=== PATIENT | female | born 1930 | race Caucasian/White ===

== ENCOUNTER 2017-01-08 22:37 | Inpatient (IN) | payer OTHER, BC ==
[~2017-01-08] VITALS: Ht 162.6 cm; Wt 56.0 kg
--- NOTE | 2017-01-08 23:03 | NUR ---
RECIEVED A 86 YEAR OLD FEMALE IN ROOM 1T C/O SHORTNESS OF BREATH FROM [place]. PT HAS HX OF DEMENTIA, ASTHMA AND COPD. PT AAOX4, REPSPIRATORY MILDLY LABORIOUS, WHEEZING NOTED ON AUSCULATION. 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 CALL LIGHT WITHIN REACH AND WILL CONTINUE TO MONITOR.
[2017-01-08 23:37] LABS: BASOPHIL % 0.5 % (0-2); PLATELET COUNT 190 x10^3mcL (130-400); RED CELL DISTRIBUTION WIDTH 13.5 % (11.5-14.5)
[2017-01-08 23:47] LABS: CALCIUM 9.1 mg/dL (8.5-10.1); CARBON DIOXIDE 31.4 mmol/L (21-32); CHLORIDE SERUM 103 mmol/L (98-107); CREATININE SERUM 1.4 mg/dL (0.6-1.0); GLUCOSE SERUM 116 mg/dL (74-106); POTASSIUM SERUM 3.6 mmol/L (3.5-5.1); SODIUM SERUM 145 mmol/L (136-145)
[2017-01-08 23:58] LABS: ALBUMIN 3.6 g/dL (3.4-5.0); ALKALINE PHOSPHATASE 58 U/L (46-116); ALT/SGPT 21 U/L (14-59); AST/SGOT 21 U/L (15-37); BILIRUBIN TOTAL 0.5 mg/dL (0.20-1.00); C REACTIVE PROTEIN 6.6 mg/dL (<=0.9); TOTAL PROTEIN, SERUM 7.2 g/dL (6.4-8.2)
--- NOTE | 2017-01-09 00:27 | NUR ---
PT STATUS DISCUSSED WITH DR ZARATE. AT TIME OF TRIAGE, PT MET SIRS CRITERIA. PT ALSO HAD ELEVATED LACTATE AT 2.5. PER DR ZARATE THERE IS NO SOURCE OF INFECTION. PT CONTINUES TO MEET SIRS CRITERIA BUT DOES NOT MEET SEPSIS CRITERIA AT THIS TIME. PURPLE SCREENING SHEET COMPLETED TO REFLECT THIS.
[2017-01-09 00:39] LABS: FREE T4 1.46 ng/dL (0.76-1.46)
[2017-01-09 00:40] LABS: T3 TOTAL 0.84 ng/mL
[2017-01-09] MEDS ORDERED: ARICEPT10 MG PO (00:53)
[2017-01-09] MEDS ORDERED: PREDNISONE5 MG PO (00:54)
[2017-01-09] MEDS ORDERED: AZOPT10 ML OS ×2 (01:00→12:12)
[2017-01-09] MEDS ORDERED: LUMIGAN2.5 M1 OU ×2 (01:00→12:12)
[2017-01-09] MEDS ORDERED: DUONEB 0.5-2.5MG/3ML NEB (01:04)
--- NOTE | 2017-01-09 01:09 | NUR ---
REPORT GIVEN TO MARQUISE BECKFORD.
[2017-01-09 01:16] LABS: UA SPECIFIC GRAVITY >=1.030 (1.005-1.035); microscopic required? YES; urine erythrocyte 3+ (NEGATIVE)
--- NOTE | 2017-01-09 01:23 | NUR ---
PT TRANSPORTED TO [facility] VIA [facility] ON BY MINNIE RN AND [facility]NIE EMT. PT IN NAD
[2017-01-09 01:42] LABS: ERYTHROCYTE SED RATE 32 mm/hr (0-30)
[2017-01-09 01:50] LABS: CHOLESTEROL/HDL RATIO 3.8; MAGNESIUM 2.1 mg/dL (1.8-2.4); PHOSPHOROUS 4.8 mg/dL (2.5-4.9)
[2017-01-09 01:53] VITALS: BP 108/69
--- NOTE | 2017-01-09 02:50 | NUR ---
RECEIVED FROM ER WITH ADMITTING DX OF COPD EXACERBATION, FACILITATED TO ASSIGNED BED AND ADMISSION CARE PROT RENDERED, PT ON SEPSIS PROT FOR ELEVATED LACTIC ACID 2.5, RECEIVED PT WITH ONGOING BOLUS IVF NS 1ST BAG HANGED AND RUNNING, IV ACCESS @ RAC PATENT NON INFIL, PT AAO VERBAL WITH MARKED WEAKNESS AAO X4 VERBAL DENIES PAIN, NO DISTRESS WITH COARSE CRACKLES BILAT LUNGS, ON AND OFF MOIST COUGHING PRODUCTIVE WITH CLEAR PHLEGM, 02 @ 2L/MIN NC, SATURATING 95% RT PROT FOR TX, HOOKED TO TELE #35 SR IN THE MONITOR, NO CP OR PRESSURE, SCD'S APPLIED FOR DVT PROPHYLAXIS, MD ADMISSION ORDERS NOTED AND CARRIED OUT, ADMISSION ASSESSMENT COMPLETED, CONT TO MONITOR AND PROCEED TO CURRENT PLAN OF CARE.
--- NOTE | 2017-01-09 04:45 | NUR ---
PT ASLEEP NO S/SX OF PAIN NOR DISCOMFORTS NO DISTRESS, CLEOCIN AND LEVAQUIN IV ADMINISTERED, BOLUS NS STILL RUNNING 2ND BAG, PT AWAKE COHERENT FOLLOWS COMMAND DENIES PAIN, V/S STABLE NO DISTRESS, CHECKED VISUALLY AT INTERVALS ATTENDED NEEDS.
[2017-01-09 05:00] VITALS: BP 121/63
--- NOTE | 2017-01-09 05:00 | NUR ---
COMPLETED BOLUS NS, BP 121/63, RR 22, HR 78, TEMP 99, SATURATING 94% WITH 2L 02/NC, CONT TO MONITOR.
--- NOTE | 2017-01-09 06:31 | NUR ---
CALLED DR MACIAS FOR RT TX ORDER, WITH AUDIBLE COARSE CRACKLES, MOIST COUGHING PT DESATURATE TO 79% DURING PHYSICAL EXERTION WHEN TRYING TO AMBULATE TO THE BATHROOM PUT BACK TO BED, 02 @ 3L/MIN GIVEN SATURATING WENT UP TO 94%, LIDAR SCIENTIST CALLED FOR TX.
--- NOTE | 2017-01-09 09:37 | NUR ---
PT ON BED, AWAKE, ALERT, AND ORIENTED. HAS NO COMPLAINT OF PAIN, SOB, OR DIZZINESS. RESPONDS WELL TO QUESTION AND ANSWER. RHONCHI NOTED ON THE BAM LUNG FIELD. SYMMETRICAL CHEST EXPANSION AND UNLABORED. PT ON 3LNC. ACTIVE BOWEL SOUNDS NOTED. SIDE RAILS UP, CALL LIGHT WITHIN REACH, WILL CONTINUE TO MONITOR
[2017-01-09 11:55] VITALS: BP 131/68
--- NOTE | 2017-01-09 12:00 | NUR ---
PT AT BEDSIDE. EATING LUNCH. WILL CONTINUE TO MONITOR
[2017-01-09 15:35] VITALS: BP 123/71
--- NOTE | 2017-01-09 15:48 | NUR ---
PT ON BED, AWAKE, ALERT, AND ORIENTED. HAS NO COMPLAINT OF PAIN, SOB, OR DIZZINESS. RESPONDS WELL TO QUESTION AND ANSWER.
--- NOTE | 2017-01-09 17:33 | NUR ---
PT ON BED, AWAKE, ALERT, AND ORIENTED. HAS NO COMPLAINT OF PAIN, SOB, OR DIZZINESS. RESPONDS WELL TO QUESTION AND ANSWER. SIDE RAILS UP, CALL LIGHT WITHIN REACH, WILL CONTINUE TO MONITOR
[2017-01-09 17:35] VITALS: BP 103/76
--- NOTE | 2017-01-09 19:36 | NUR ---
PT IS A/O X3, VERBAL RESPONSIVE, ABLE TO TELL WHAT SHE NEEDS, LUNG SOUND WHEEZING BILATERAL, NO COUGH, DENY ANY SOB, PT IS ON 2L/MIN O2 VIA NC, PO2 97%, PT IS ON TELE 30, NSR, DENY ANY CHEST PAIN OR DISCOMFORT, BOWEL SOUND PRESENT ALL 4 QUADRANTS, NO DISTENTION, NO TENDER. PEDAL PULSE PRESENT BOTH FEET, TRACE EDEMA NOTED BLE, IV AT RIGHT AC, NO LEAKING, NO INFILTRATON. ALL ADLS ASSIST, ALL NEED MET, CALL LIGHT IN REACH, WILL CONTINUE TO MONITOR.
[2017-01-09 21:05] VITALS: BP 145/73
--- NOTE | 2017-01-10 05:19 | NUR ---
PT IS SLEEPING, AWAKE BY TOUCH, DENY ANY RESPIRATORY DISTRESS, DENY ANY PAIN OR DISCOMFORT, IV AT LEFT AC, NO LEAKING, NO INFILTRATION. ALL ADLS ASSIST, ALL NEED MET, CALL LIGHT IN REACH, WILL CONTINUE TO MONITOR.
[2017-01-10 05:34] VITALS: BP 141/75
[2017-01-10 06:10] LABS: BASOPHIL % 0.1 % (0-2); PLATELET COUNT 159 x10^3mcL (130-400); RED CELL DISTRIBUTION WIDTH 13.7 % (11.5-14.5)
[2017-01-10 06:35] LABS: CALCIUM 8.3 mg/dL (8.5-10.1); CARBON DIOXIDE 27.7 mmol/L (21-32); CHLORIDE SERUM 110 mmol/L (98-107); CREATININE SERUM 1.1 mg/dL (0.6-1.0); GLUCOSE SERUM 136 mg/dL (74-106); PHOSPHOROUS 4.1 mg/dL (2.5-4.9); SODIUM SERUM 145 mmol/L (136-145)
--- NOTE | 2017-01-10 07:55 | NUR ---
echocardiogram pending patient in barthroom
[2017-01-10 08:57] VITALS: BP 140/65
--- NOTE | 2017-01-10 10:53 | NUR ---
C/O PROD. COUGH, MEDICATED WITH PHENERGAN SYRUP.
[2017-01-10 13:10] VITALS: BP 144/81
--- NOTE | 2017-01-10 15:46 | NUR ---
PT SITTING ON A CHAIR RECEIVINH HHN TX. NO ACUTE RESP. DISTRESS NOTED. DENIES PAIN OR DISCOMFORT.
[2017-01-10 16:10] VITALS: BP 157/79
--- NOTE | 2017-01-10 19:21 | NUR ---
RESTING AT THIS TIME, NO ACUTE DISTRESS NOTED. PT REPORTED RELIEF FROM COUGH MEDS. IVF INFUSING WELL AND SITE CLEAR. CALL LIGHT WITHIN REACH. WILL BE ENDORSED TO INCOMING SHIFT.
--- NOTE | 2017-01-10 19:47 | NUR ---
AWAKE AND ALERT, ORIENTED TO NAME, PLACE, TIME AND SITUATION. SPEECH CLEAR AND APPROPRIATE. COUGHING A LOT, NOTED WHITE SPUTUM EXPECTORATED. STATED HAVING SHORTNESS OF BREATH, WITH EXPIRATORY WHEEZES, CRACKLES HEARD. O2 SAT 95%, RR 22/MIN. SINUS TACHYCARDIC ON TELE, HR 124/MIN. PAGED RESPIRATORY THERAPIST. HE CAME IN ROOM TO PROVIDE BREATHING TREATMENT. IVF OF NS AT 100ML/HR.
[2017-01-10 20:33] VITALS: BP 140/64
--- NOTE | 2017-01-10 20:36 | NUR ---
BREATHING TREATMENT WAS DONE, PT STATED FEELING BETTER, BUT STILL COUGHING. DUE MUCINEX ADMINISTERED PO. KEPT ON HIGH FOWLERS.
--- NOTE | 2017-01-10 21:26 | NUR ---
EYES CLOSED, BREATHING APPEARS EVEN AND UNLABORED ON ROOM AIR. HOB ELEVATED 40 DEG. UPPER SIDE RAILS IN RAISED POSITION. CALL LIGHT WITHIN EASY REACH.
--- NOTE | 2017-01-10 23:29 | NUR ---
LATE ENTRY: 2130H - AMBULATED TO RESTROOM.
--- NOTE | 2017-01-11 03:52 | NUR ---
PT WOKE UP, DISORIENTED, STATED "I'M NOT IN A REGULAR HOSPITAL." RE-ORIENTED TO HOSPITAL ENVIRONMENT, PT STATED "I DON'T BELIEVE YOU, SOMETHING IS GOING ON. I WANT TO CALL MY DAUGHTER". ASSISTED TO CALL HER DAUGHTER.
--- NOTE | 2017-01-11 04:16 | NUR ---
AMBULATED TO RESTROOM, GAIT STEADY. REFUSED ASSISTANCE.
--- NOTE | 2017-01-11 04:29 | NUR ---
WALKED BACK TO BED, ASSISTED BY MIMI GARCIA TO WEAR A NEW GOWN.
--- NOTE | 2017-01-11 05:35 | NUR ---
REFUSED CHEST X RAY. PAGED DR. ALMAZAN.
--- NOTE | 2017-01-11 05:39 | NUR ---
INFORMED DR. ALMAZAN VIA [facility] [employer] PT REFUSED CHEST X RAY
--- NOTE | 2017-01-11 05:59 | NUR ---
DR. ALMAZAN AWARE PT REFUSED CXR.
[2017-01-11 06:00] VITALS: BP 136/77
[2017-01-11 06:28] LABS: PLATELET COUNT 181 x10^3mcL (130-400); RED CELL DISTRIBUTION WIDTH 13.5 % (11.5-14.5)
[2017-01-11 06:39] LABS: CALCIUM 8.5 mg/dL (8.5-10.1); CARBON DIOXIDE 30.9 mmol/L (21-32); CHLORIDE SERUM 106 mmol/L (98-107); CREATININE SERUM 1.2 mg/dL (0.6-1.0); GLUCOSE SERUM 112 mg/dL (74-106); MAGNESIUM 1.9 mg/dL (1.8-2.4); PHOSPHOROUS 3.5 mg/dL (2.5-4.9); POTASSIUM SERUM 3.8 mmol/L (3.5-5.1); SODIUM SERUM 145 mmol/L (136-145)
[2017-01-11 07:15] LABS: BASOPHIL % 0 % (0-2)
--- NOTE | 2017-01-11 08:00 | NUR ---
PT IS AWAKE ALERT AND ORIENTED. X3, FORGETFUL. TELE 35 SR, PULSES EQUAL BILATERAL TRACE EDEMA NOTED. LUNGS SOUNDS DIMINISHED WITH EXPIRATORY WHEEZES NOTED. O2 IN PLACE, BOWEL SOUDS ACTIVE IN ALL 4 QUADRANTS. BRP WITH ASSIST. AMBULATES WITH ASSIST. SKIN IS INTACT. NO COMPLAINTS OF PAIN AT THIS TIME. IV TO THE LAC INFUSING. PT IS CALM AND COOPERATIVE WITH CARE.
[2017-01-11 09:15] VITALS: BP 176/107
--- NOTE | 2017-01-11 10:52 | NUR ---
IV DISPLACED TO THE LAC, NEW IV STARTED ONE ATTEMPT 20G TO THE LFA, IV IS PATENT AND FLUSHES WELL. PT TOLERATED WELL.
--- NOTE | 2017-01-11 12:23 | NUR ---
PT RESTLESS IN ROOM, WALKED WITH PT AROUND THE NURSES STATION. NO SOB. WILL CONTINUE TO MONITOR.
[2017-01-11 12:34] VITALS: BP 163/100
--- NOTE | 2017-01-11 12:53 | NUR ---
DR CASSIDY MADE AWARE OF PTS ELEVATED BP, DINO RECIEVED AND MEDICATED ACCORDING TO MAR.
--- NOTE | 2017-01-11 13:12 | NUR ---
FAMILY IN TO SEE PATIENT.
[2017-01-11 14:20] VITALS: BP 145/86
[2017-01-11 17:23] VITALS: BP 126/89
--- NOTE | 2017-01-11 18:52 | NUR ---
PT SITTING UP IN CHAIR AT BEDSIDE. NO SIGNS OF DISTRESS WILL CONTINUE TO MONITOR.
--- NOTE | 2017-01-11 19:53 | NUR ---
AWAKE AND ALERT, ABLE TO STATE NAME, WHERE SHE IS, AND SITUATION. SPEECH CLEAR AND APPROPRIATE. SITTING ON BED, COUGHING NOTED. LUNG SOUNDS DIMINISHED TO BASES, WITH CRACKLES HEARD ON BOTH SIDES. IVF OF NS AT 100ML/HR.
[2017-01-11 20:35] VITALS: BP 145/83
--- NOTE | 2017-01-12 00:42 | NUR ---
EYES CLOSED, BREATHING EVEN AND UNLABORED ON ROOM AIR. RR 16/MIN. NO COUGHING NOTED FOR PAST 2 HOURS. SINUS TACHYCARDIC, HEART RATE 105/MIN. CALL LIGHT WITHIN EASY REACH. HOB KEPT ELEVATED 30 DEG. UPPER SIDE RAILS KEPT RAISED.
--- NOTE | 2017-01-12 03:38 | NUR ---
AMBULATED TO RESTROOM, HYGIENE NEEDS ATTENDED TO BY MIMI REYNOLDS. PT SITTING ON CHAIR AT THIS TIME. INSISTED TO HAVE IV SALINE LOCKED.
--- NOTE | 2017-01-12 05:35 | NUR ---
REFUSED LAB DRAW AND IV FLUIDS. INFORMED DR. ALMAZAN VIA [employer].
[2017-01-12 05:40] VITALS: BP 189/111
--- NOTE | 2017-01-12 06:32 | NUR ---
BP WAS 189/111. ATTEMPTED TO RECHECK, BUT PT REFUSED. DR. NORAH BEAR.
--- NOTE | 2017-01-12 06:35 | NUR ---
DR. ALMAZAN IN ROOM TALKING TO PT.
--- NOTE | 2017-01-12 06:47 | NUR ---
PT STILL REFUSING BLOOD PRESSURE CHECK.
--- NOTE | 2017-01-12 08:10 | NUR ---
AWAKE AND ALERT. PATIENT IS VERY ANGRY, ANXIOUS, AND UPSET. SITTING UP IN A CHAIR. REFUSED ALL NURSING CARE AND MEDICATION. UNCOOPERATIVE AT THIS TIME.INSTRUCTED PATIENT TO GO BACK TO BED. CALL LIGHT WITHIN REACH. DR CASSIDY WAS NOTIFIED REGARDING PATIENT CONDITION AND REFUSED ALL MEDICATIONS TO BE TAKEN THIS MORNING INCLUDING THE BLOOD PRESSURE IVP MEDICATION. REFUSED VITAL SIGNS TO BE TAKEN. WILL CONTINUE TO MONITOR PATIENT.
--- NOTE | 2017-01-12 08:35 | NUR ---
DR. CRISTINA AND OTHER MEDICAL STAFF MADE MORING ROUNDS AND UPDATED PATIENT PLAN OF CARE.
[2017-01-12] MEDS ORDERED: LEVAQUIN750 MG PO (09:48)
[2017-01-12] MEDS ORDERED: BD LACTINEX1.4 MG PO (09:49)
--- NOTE | 2017-01-12 13:00 | NUR ---
PT. APPEARS RESTING IN BED POA AT BEDSIDE.PT. NO ACUTE DISTRESS NOTED. CALL LIGHT W/ IN REACH.
[2017-01-12 13:13] VITALS: BP 145/92
[2017-01-12 13:48] VITALS: BP 145/92
--- NOTE | 2017-01-12 13:50 | NUR ---
V/S TAKEN AND RECORDED B/P 145/92 HR- 110 RR- 22 ,02 SAT 94% RA NO ACUTE DISTRESS NOTED.DR. CASSIDY NOTIFIED AND MADE AWARE.
[2017-01-12] MEDS ORDERED: PHEL PO (13:54)
--- NOTE | 2017-01-12 14:30 | NUR ---
PT. WENT HOME W/ STABLE CONDITION PER W/C ACC. W/ HER POA ,DISCHARGED INSTRUCTIONS AND PRESCTIPTION GIVEN AND DISCUSSED TO PT./POA AND VERBALIZED UNDERSTANDING OF INSTRUCTIONS GIVEN. NO ACUTE DISTRESS NOTED.ESCORTED BY AUDIO VISUAL TECH IN THE LOBBY.
== END 2017-01-12 14:31 | disposition home or self-care (01) | DRG 190 ==
LOC: ED 22:37 → DU 01-09 00:07
PROVIDERS: Specialist; ADMIT Family Medicine
DX: J44.1 Chronic obstructive pulmonary disease with (acute) exacerbation (principal); N17.0 Acute kidney failure with tubular necrosis; J96.01 Acute respiratory failure with hypoxia; N13.2 Hydronephrosis with renal and ureteral calculous obstruction; N39.0 Urinary tract infection, site not specified; R31.9 Hematuria, unspecified; K76.89 Other specified diseases of liver; K80.20 Calculus of gallbladder without cholecystitis without obstruction; K44.9 Diaphragmatic hernia without obstruction or gangrene; N26.1 Atrophy of kidney (terminal); K57.30 Diverticulosis of large intestine without perforation or abscess without bleeding; E78.5 Hyperlipidemia, unspecified; M19.90 Unspecified osteoarthritis, unspecified site; G30.9 Alzheimer's disease, unspecified; F02.80 Dementia in other diseases classified elsewhere, unspecified severity, without behavioral disturbance, psychotic disturbance, mood disturbance, and anxiety; Z68.21 Body mass index [BMI] 21.0-21.9, adult; Z87.891 Personal history of nicotine dependence; Z79.52 Long term (current) use of systemic steroids; Z91.14 Patient's other noncompliance with medication regimen
CPT/HCPCS: 36600; 83880; 84439; J0360; J1940; J1956; J2920; J2930; J3490; J7030; J7620; J7633; Q0092; Q0169